=== PATIENT | male | born 1945 | race Caucasian/White ===

== ENCOUNTER 2016-09-10 10:58 | Emergency (ER) | payer SELFPAY ==
[2016-09-10] MEDS ORDERED: Zofran 4 MG/2 ML VIAL IV ONE (11:15)
[2016-09-10] MEDS ORDERED: Sodium Chloride 0.9% 1000 ML 1,000 ML IV SCH (11:15)
[2016-09-10] MEDS ORDERED: PROTONIX 40 MG IV IV ONE ×2 (11:15→11:28)
--- NOTE | 2016-09-10 11:24 | ERPHSYRPT ---
- History of Present Illness Time Seen by Provider: 09/10/16 11:10 Historian: patient Exam Limitations: clinical condition Patient Subjective Stated Complaint: PT REPORTS ABD PAIN GOING INTO BACK-STATES THAT HIS CHEMO MEDS WHERE CHANGED LAST SUNDAY-DENIES N/V/D-DENIES DIFFICULTY WITH BOWELS Triage Nursing Assessment: PT PINK WARM ET DRY-A & O X 3-BOWEL SOUNDS HYPERACTIVE-ABD SOFT ET NONTENDER TO PALP Physician History: PATIENT WITH A HISTORY OF MULTIPLE MYELOMA FOR 5 YEARS, TREATED WITH CHEMOTHERAPY COMPLAINS OF ABDOMINAL PAIN WHICH RADIATES TO HIS BACK SINCE YESTERDAY. DENIES NAUSEA, EMESIS, DIARRHEA, FEVER, CHILLS, DYSPNEA, COUGH OR URINARY SYMPTOMS. HAS A PAIN SCALE 6/10. HE ALSO DENIES NUMBNESS, TINGLING, WEAKNESS IN EXTREMITIES. Timing/Duration: yesterday Activities at Onset: none Quality: throbbing Abdominal Pain Onset Location: periumbilical Pain Radiation: back Severity of Pain-Max: moderate Severity of Pain-Current: moderate Modifying Factors: Improves With: nothing Associated Symptoms: back Previous symptoms: no prior history Allergies/Adverse Reactions: acetaminophen [From Tylenol] Allergy (Intermediate, Verified 09/10/16 11:04) Home Medications: Acyclovir 200 mg Cap [Zovirax 200 mg ] 200 mg PO UD 09/10/16 [History] Dexamethasone 4 mg PO UD 09/10/16 [History] Glipizide [Glipizide ER] 0 mg PO UD 09/10/16 [History] Levothyroxine Sodium 0 mcg PO UD 09/10/16 [History] Metformin HCl [Metformin HCl ER] 0 mg PO UD 09/10/16 [History] Hx Tetanus, Diphtheria Vaccination/Date Given: No Hx Influenza Vaccination/Date Given: No Hx Pneumococcal Vaccination/Date Given: No Immunizations Up to Date: Yes - Review of Systems Constitutional: No Fever, No Chills Eyes: No Symptoms Ears, Nose, & Throat: No Symptoms Respiratory: No Cough, No Dyspnea Cardiac: No Symptoms, No Chest Pain, No Edema, No Syncope Abdominal/Gastrointestinal: Abdominal Pain, No Nausea, No Vomiting, No Diarrhea Genitourinary Symptoms: No Symptoms, No Dysuria Musculoskeletal: No Symptoms, No Back Pain, No Neck Pain Skin: No Symptoms, No Rash Neurological: No Symptoms, No Dizziness, No Focal Weakness, No Sensory Changes Psychological: No Symptoms Endocrine: No Symptoms All Other Systems: Reviewed and Negative - Past Medical History Pertinent Past Medical History: Yes Other Medical History: AGENT ORANGE - Past Surgical History Past Surgical History: No - Social History Smoking Status: Never smoker Exposure to second hand smoke: No Drug Use: none Patient Lives Alone: No - Nursing Vital Signs Nursing Vital Signs: Initial Vital Signs Temperature 97.9 F Temperature Source Oral Pulse Rate 74 Respiratory Rate 20 Blood Pressure [] 123/76 Pain Intensity 0 - Physical Exam General Appearance: no apparent distress, alert Eye Exam: PERRL/EOMI, eyes nml inspection Ears, Nose, Throat Exam: normal ENT inspection, pharynx normal, moist mucous membranes Neck Exam: normal inspection, non-tender, supple, full range of motion Respiratory Exam: normal breath sounds, lungs clear, No respiratory distress Cardiovascular Exam: regular rate/rhythm, normal heart sounds Gastrointestinal/Abdomen Exam: soft, normal bowel sounds, other (NONTENDER UPON DEEP PALPATION, NO GUARDING OR REBOUND TENDERNESS), No tenderness, No mass Back Exam: normal inspection, normal range of motion, No CVA tenderness, No vertebral tenderness Extremity Exam: normal inspection, normal range of motion, pelvis stable Neurologic Exam: alert, oriented x 3, cooperative, normal mood/affect, nml cerebellar function, sensation nml, No motor deficits Skin Exam: normal color, warm, dry SpO2: 97 Oxygen Delivery: Room Air - Course EKG Interpreted by Me: RATE, Sinus Rhythm, NORMAL AXIS - CT Exams Abdomen/Pelvis CT Interpretation: Discussed w/radiologist (THERE IS A 10CM MASS IN THE RIGHT LOBE OF LIVER,FAVORING PRIMARY CARCINOMA.DISTENDED GALL BLADDER, NUMEROUS TINY CALCIFIED GALLSTONES) Ordered Tests: Active Orders 24 hr Category Date Time Status Clean Catch Urine Specimen STAT Care 09/10/16 11:15 Active EKG-ER Only STAT Care 09/10/16 11:24 Active IV Insertion STAT Care 09/10/16 11:15 Active ABDOMEN AND PELVIS W CONTRAST [CT] Stat Exams 09/10/16 11:16 Taken AMYLASE Stat Lab 09/10/16 11:27 Completed BLOOD CULTURE Stat Lab 09/10/16 11:41 Received CBC W DIFF Stat Lab 09/10/16 11:27 Completed CMP Stat Lab 09/10/16 11:27 Completed LIPASE Stat Lab 09/10/16 11:27 Completed MAGNESIUM Stat Lab 09/10/16 11:27 Completed TROPONIN Q3H Lab 09/10/16 11:30 Completed TROPONIN Q3H Lab 09/10/16 14:30 Ordered TROPONIN Q3H Lab 09/10/16 23:30 Ordered UA Stat Lab 09/10/16 11:16 Ordered Medication Summary Generic Name Dose Route Start Last Admin Trade Name Freq PRN Reason Stop Dose Admin Sodium Chloride 1,000 mls @ 150 mls/hr 09/10/16 11:15 09/10/16 11:34 Sodium Chloride 0.9% 1000 Ml IV 10/10/16 11:14 150 mls/hr .[id number] SURINDER Administration Discontinued Medications Generic Name Dose Route Start Last Admin Trade Name Freq PRN Reason Stop Dose Admin Hydromorphone HCl 1 mg 09/10/16 11:49 09/10/16 11:55 Hydromorphone 1 Mg/Ml Ampule IV 09/10/16 11:50 1 mg STAT ONE Administration Hydromorphone HCl Confirm 09/10/16 11:54 Hydromorphone 1 Mg/Ml Ampule Administered 09/10/16 11:55 Dose 1 mg .ROUTE .STK-MED ONE Sodium Chloride Confirm 09/10/16 11:28 Sodium Chloride 0.9% 1000 Ml Administered 09/10/16 11:29 Dose 1,000 mls @ ud .ROUTE .STK-MED ONE Ondansetron HCl 4 mg 09/10/16 11:15 09/10/16 11:34 Zofran 4 Mg/2 Ml Vial IV 09/10/16 11:16 4 mg STAT ONE Administration Ondansetron HCl Confirm 09/10/16 11:28 Zofran 4 Mg/2 Ml Vial Administered 09/10/16 11:29 Dose 4 mg .ROUTE .STK-MED ONE Pantoprazole Sodium 40 mg 09/10/16 11:15 09/10/16 11:34 Protonix 40 Mg Iv IV 09/10/16 11:16 40 mg STAT ONE Administration Pantoprazole Sodium Confirm 09/10/16 11:28 Protonix 40 Mg Iv Administered 09/10/16 11:29 Dose 40 mg IV .STK-MED ONE Lab/Rad Data: Laboratory Result Diagrams 09/10/16 11:27 09/10/16 11:27 Laboratory Results 09/10/16 09/10/16 09/10/16 Range/Units 11:30 11:27 11:27 WBC (4.0-10.5) K/mm3 RBC (4.1-5.6) M/mm3 Hgb (12.5-18.0) gm/dl Hct (42-50) % MCV (78-100) fl MCH (26-32) pg MCHC (32-36) g/dl RDW (11.5-14.0) % Plt Count (150-450) K/mm3 MPV (6-9.5) fl Gran % (36.0-66.0) % Lymphocytes % (24.0-44.0) % Monocytes % (0.0-12.0) % Eosinophils % (0.00-5.0) % Basophils % (0.0-0.4) % Basophils # (0-0.4) Sodium 139 (136-145) mEq/L Potassium 4.1 (3.5-5.1) mEq/L Chloride 103 (98-107) mEq/L Carbon Dioxide 26.4 (21-32) mEq/L Anion Gap 13.7 (5-15) MEQ/L BUN 34 H (9-20) mg/dL Creatinine 1.18 (0.55-1.30) mg/dl Estimated GFR > 60 ML/MIN Glucose 206 H (70-110) MG/DL Calcium 9.1 (8.5-10.1) mg/dL Magnesium 1.7 L (1.8-2.4) mg/dL Total Bilirubin 1.1 H (0.2-1.0) mg/dL AST 24 (15-37) U/L ALT 40 (12-78) U/L Alkaline Phosphatase 60 (46-116) U/L Troponin I < 0.017 (0.000-0.056) ng/ml Serum Total Protein 7.1 (6.4-8.2) gm/dL Albumin 3.7 (3.4-5.0) g/dL Amylase 133 H (25-115) U/L Lipase 1358 H (73-393) U/L 09/10/16 Range/Units 11:27 WBC 10.3 (4.0-10.5) K/mm3 RBC 4.59 (4.1-5.6) M/mm3 Hgb 14.3 (12.5-18.0) gm/dl Hct 41.8 L (42-50) % MCV 91.1 (78-100) fl MCH 31.2 (26-32) pg MCHC 34.2 (32-36) g/dl RDW 12.4 (11.5-14.0) % Plt Count 181 (150-450) K/mm3 MPV 11.2 H (6-9.5) fl Gran % 76.6 H (36.0-66.0) % Lymphocytes % 11.9 L (24.0-44.0) % Monocytes % 11.0 (0.0-12.0) % Eosinophils % 0.5 (0.00-5.0) % Basophils % 0.0 (0.0-0.4) % Basophils # 0 (0-0.4) Sodium (136-145) mEq/L Potassium (3.5-5.1) mEq/L Chloride (98-107) mEq/L Carbon Dioxide (21-32) mEq/L Anion Gap (5-15) MEQ/L BUN (9-20) mg/dL Creatinine (0.55-1.30) mg/dl Estimated GFR ML/MIN Glucose (70-110) MG/DL Calcium (8.5-10.1) mg/dL Magnesium (1.8-2.4) mg/dL Total Bilirubin (0.2-1.0) mg/dL AST (15-37) U/L ALT (12-78) U/L Alkaline Phosphatase (46-116) U/L Troponin I (0.000-0.056) ng/ml Serum Total Protein (6.4-8.2) gm/dL Albumin (3.4-5.0) g/dL Amylase (25-115) U/L Lipase (73-393) U/L - Progress Progress Note: 09/10/16 13:43 PATIENT GIVEN IV FLUIDS NORMAL SALINE 150ML/HR, ZOFRAN 4MG, DILAUDID 1MG IV Discussed with : Other Will see patient in: other (DISCUSSED WITH [facility] [place], DR UNDERWOOD AT 1340 ACCEPTS TRANSFER TO THEIR HOSP[facility] VIA [facility]) - Departure Time of Disposition: 14:35 Departure Disposition: Transfer Clinical Impression: ACUTE PANCREATITIS, LIVER MASS, CHOLELITHIASIS Condition: Stable Critical Care Time: No Referrals: DOCTOR,NO FAMILY [Primary Care Provider] -
[2016-09-10] MEDS ORDERED: Sodium Chloride 0.9% 1000 ML 1,000 ML ONE (11:28)
[2016-09-10] MEDS ORDERED: Zofran 4 MG/2 ML VIAL ONE (11:28)
[2016-09-10 11:46] LABS: Eosinophil % 0.5 % (0.00-5.0); Granulocytes % 76.6 % (36.0-66.0); Lymphocytes % 11.9 % (24.0-44.0); Mean Cell Volume 91.1 fl (78-100); Mean Corpuscular Hemoglobin 31.2 pg (26-32); Mean Platelet Volume 11.2 fl (6-9.5); Platelet Count 181 K/mm3 (150-450); Red Blood Count 4.59 M/mm3 (4.1-5.6); Red Cell Distribution Width 12.4 % (11.5-14.0); White Blood Count 10.3 K/mm3 (4.0-10.5)
[2016-09-10] MEDS ORDERED: Hydromorphone 1 mg/ml Ampule IV ONE (11:49)
[2016-09-10] MEDS ORDERED: Hydromorphone 1 mg/ml Ampule ONE (11:54)
[2016-09-10 11:56] LABS: ALBUMIN 3.7 g/dL (3.4-5.0); ALKALINE PHOSPHATASE 60 U/L (46-116); ANION GAP 13.7 MEQ/L (5-15); BILIRUBIN,TOTAL 1.1 mg/dL (0.2-1.0); BLOOD UREA NITROGEN 34 mg/dL (9-20); CHLORIDE 103 mEq/L (98-107); Carbon Dioxide 26.4 mEq/L (21-32); Glucose 206 MG/DL (70-110); LIPASE 1358 U/L (73-393); Potassium 4.1 mEq/L (3.5-5.1); SGOT/AST 24 U/L (15-37); SGPT/ALT 40 U/L (12-78); SODIUM 139 mEq/L (136-145); Total Protein 7.1 gm/dL (6.4-8.2)
[2016-09-10 13:00] VITALS: PULSE 74
[2016-09-10 13:46] VITALS: O2SAT 97
[2016-09-10 13:58] VITALS: BP 123/76
--- NOTE | 2016-09-10 16:39 | XRAY ---
Indication: Abdominal pain and nausea. Chemotherapy. Multiple contiguous axial images obtained through the abdomen and pelvis using 80 cc Isovue 370 contrast only. Comparison: None Lung bases demonstrates minimal left base fibrosis/scarring. No infiltrate, consolidation, or effusion. Heart is not enlarged. In the right lobe of liver, there is a hypodense liver measuring at least 10 cm in greatest axial dimension with scattered calcifications favoring primary carcinoma. Smaller 3 cm noncalcified liver mass seen in the lateral segment of the left lobe of the liver. Metastasis not completely excluded. Gallbladder is distended with several tiny intraluminal cholesterol stones and calcified stones. No biliary distention. Noncontrasted stomach and bowel loops appear nonobstructed. Moderate diffuse scattered colonic fecal debris throughout. Normal appendix. No free fluid/air. Remaining pancreas, spleen, adrenal glands, kidneys, ureters, and bladder appear unremarkable. Mild aortoiliac calcifications. No AAA or pathologic retroperitoneal lymphadenopathy. Osseous structures intact with mild degenerative changes throughout the spine. Small fatty right inguinal hernia. Tiny fatty umbilical hernia. Impression: 1. Hepatic masses as detailed favoring primary carcinoma such as hepatocellular carcinoma given the calcifications. Metastasis not completely excluded. 2. Distended gallbladder with several cholesterol stones and calcified stones. No abnormal biliary distention. 3. Fecal stasis without obstruction. 4. Fatty umbilical and right inguinal hernias. CTDI 23.34
== END 2016-09-10 14:44 | disposition short-term general hospital (02) ==
LOC: ED 10:58
DX: K85.90 Acute pancreatitis without necrosis or infection, unspecified (principal); R16.0 Hepatomegaly, not elsewhere classified; K80.20 Calculus of gallbladder without cholecystitis without obstruction; C90.00 Multiple myeloma not having achieved remission; Z79.899 Other long term (current) drug therapy; R10.9 Unspecified abdominal pain
CPT/HCPCS: 36000; 36415; 74177; 80053; 82150; 83690; 83735; 84484; 85025; 87040; 93005; 96360; 96361; 96374; 96375; 99285; J1170; J2405

== ENCOUNTER 2020-10-08 19:45 | Emergency (ER) | payer MEDICARE, OTHER ==
[2020-10-08 20:18] LABS: Absolute Neutrophil Ct (ANC) 3.39 (1.4-6.9); Basophil (Absolute #) 0.05 (0-0.4); Eosinophil % 2.5 % (0.00-5.0); Eosinophil (Absolute #) 0.13 (0-0.5); Hematocrit 32.6 % (42-50); Hemoglobin 10.7 gm/dl (12.5-18.0); Lymphocyte (Absolute #) 0.78 (1.0-4.6); Lymphocytes % 15.3 % (24.0-44.0); Mean Cell Volume 99.4 fl (78-100); Mean Corpuscular Hemoglobin 32.6 pg (26-32); Mean Corpuscular Hgb Concent. 32.8 g/dl (32-36); Mean Platelet Volume 10.7 fl (7.5-11.0); Monocyte (Absolute #) 0.75 (0.0-1.3); Monocytes % 14.7 % (0.0-12.0); Neutrophil % 66.5 % (36.0-66.0); Platelet Count 118 K/mm3 (150-450); Red Blood Count 3.28 M/mm3 (4.1-5.6); Red Cell Distribution Width 14.4 % (11.5-14.0); White Blood Count 5.1 K/mm3 (4.0-10.5)
[2020-10-08 20:25] LABS: INR 1.06 (0.8-3.0)
[2020-10-08 20:30] LABS: ALBUMIN 3.8 g/dL (3.5-5.0); ALKALINE PHOSPHATASE 66 U/L (38-126); BLOOD UREA NITROGEN 22 mg/dL (9-20); CHLORIDE 104 mmol/L (98-107); Calcium 9.3 mg/dL (8.4-10.2); Carbon Dioxide 26 mmol/L (22-30); Creatinine 1 1.23 mg/dL (0.66-1.25); EST GLOMERULAR FILTRATION RATE > 60.0 ML/MIN; Glucose 265 mg/dL (74-106); Potassium 4.4 mmol/L (3.5-5.1); SGOT/AST 18 U/L (17-59); SGPT/ALT 17 U/L (0-50); SODIUM 137 mmol/L (137-145); Total Protein 6.4 g/dL (6.3-8.2)
--- NOTE | 2020-10-08 20:56 | ERPHSYRPT ---
- History of Present Illness Time Seen by Provider: 10/08/20 20:00 Source: patient Patient Subjective Stated Complaint: "My leg is swollen." Triage Nursing Assessment: Patient reported right lower extremity swelling and feeling hot. Denied pain. Denied injury. Onset three days ago and worsening until today. Reported decreased ROM without pain. Deneid chest pain, shortness of breath, cold chills. Symmetrical chest expansion. Heart tones S1/S2. Lungs vesicular. Peripheral pulses +2 bilateral. Pedal pulses or posterior tibial pulses intact bilateral. Right lower extremity with significant swelling, heat, and mild errythema. negative Toby's sign. Physician History: Patient is a 75-year-old male who presents with a complaint of swelling of the right lower extremity for 3 days. There is been edema some heat he denies any significant pain. He has no history of DVT and is not on any anticoagulants. Timing/Duration: day(s) (3) Activities at Onset: none Quality: fullness Severity of Pain-Max: mild Severity of Pain-Current: mild Modifying Factors: Improves With: movement Nitro Today/Relief: no nitro taken today Aspirin Treatment Today: no aspirin today Associated Symptoms: No shortness of breath Allergies/Adverse Reactions: acetaminophen [From Tylenol] Allergy (Intermediate, Verified 10/08/20 19:55) Home Medications: Acyclovir 200 mg Cap [Zovirax 200 mg ] 200 mg PO UD 09/10/16 [History] Glipizide [Glipizide ER] 0 mg PO UD 09/10/16 [History] Levothyroxine Sodium 0 mcg PO UD 09/10/16 [History] Metformin HCl [Metformin HCl ER] 0 mg PO UD 09/10/16 [History] dexAMETHasone [Dexamethasone] 4 mg PO UD 09/10/16 [History] Aspirin 1 tab PO DAILY 10/08/20 [History] Hx Tetanus, Diphtheria Vaccination/Date Given: Yes Hx Influenza Vaccination/Date Given: Yes Hx Pneumococcal Vaccination/Date Given: No Travel Risk - International Travel Have you traveled outside of the country in past 3 weeks: No - Coronavirus Screening Are you exhibiting any of the following symptoms?: No Close contact with a COVID-19 positive Pt in past 14-21 Days: No - Vaccine Status Have you recieved a Covid-19 vaccination: No - Review of Systems Constitutional: No Fever, No Chills Eyes: No Symptoms Ears, Nose, & Throat: No Symptoms Respiratory: No Cough, No Dyspnea Cardiac: Edema (Right lower leg), No Chest Pain, No Syncope Abdominal/Gastrointestinal: No Abdominal Pain, No Nausea, No Vomiting, No Diarrhea Genitourinary Symptoms: No Dysuria Musculoskeletal: Joint Redness, No Back Pain, No Neck Pain Skin: No Rash Neurological: No Dizziness, No Focal Weakness, No Sensory Changes Psychological: No Symptoms Endocrine: No Symptoms Hematologic/Lymphatic: No Symptoms Immunological/Allergic: No Symptoms All Other Systems: Reviewed and Negative - Past Medical History Pertinent Past Medical History: Yes Endocrine Medical History: Diabetes Type I, Hypothyroidism Other Medical History: AGENT ORANGE - Past Surgical History Past Surgical History: No - Social History Smoking Status: Never smoker Exposure to second hand smoke: No Drug Use: none Patient Lives Alone: No - Nursing Vital Signs Nursing Vital Signs: Initial Vital Signs Temperature 96.6 F 10/08/20 19:45 Pulse Rate 99 H 10/08/20 19:45 Respiratory Rate 16 10/08/20 19:45 Blood Pressure 164/83 10/08/20 19:45 O2 Sat by Pulse Oximetry 97 10/08/20 19:45 Pain Scale Pain Intensity 0 - Physical Exam General Appearance: no apparent distress, alert Eye Exam: PERRL/EOMI, eyes nml inspection Ears, Nose, Throat Exam: normal ENT inspection, moist mucous membranes Neck Exam: normal inspection, non-tender, supple Respiratory Exam: normal breath sounds, lungs clear, No respiratory distress Cardiovascular Exam: regular rate/rhythm, normal heart sounds, No edema Gastrointestinal/Abdomen Exam: soft, No tenderness, No mass Back Exam: normal inspection, No CVA tenderness, No vertebral tenderness Extremity Exam: normal range of motion, calf tenderness, inflammation, swelling, tenderness Neurologic Exam: alert, oriented x 3, cooperative, normal mood/affect, nml cerebellar function, sensation nml, No motor deficits Skin Exam: normal color, warm, dry Lymphatic Exam: No adenopathy SpO2: 96 - Radiology Ultrasound Exam Venous Lower Extremity Ultrasound: Other (Venous Doppler of the veins in the right lower extremity show loss of compressibility at the mid thigh area. This is consistent with DVT) Ordered Tests: Active Orders 24 hr Category Date Time Status IV Insertion STAT Care 10/08/20 20:05 Active NPO (ED) STAT Care 10/08/20 19:59 Active VENOUS UNILAT/LIMITED EXTREMIT [US] Stat Exams 10/08/20 21:20 Taken CBC W DIFF Stat Lab 10/08/20 20:00 Completed CMP Stat Lab 10/08/20 20:00 Completed D-DIMER QUANTITATIVE Stat Lab 10/08/20 20:00 Completed PROTIME WITH INR Stat Lab 10/08/20 20:00 Completed PTT Stat Lab 10/08/20 20:00 Completed Lab/Rad Data: Laboratory Result Diagrams 10/08/20 20:00 10/08/20 20:00 Laboratory Results 10/08/20 10/08/20 10/08/20 Range/Units 20:00 20:00 20:00 WBC 5.1 (4.0-10.5) K/mm3 RBC 3.28 L (4.1-5.6) M/mm3 Hgb 10.7 L (12.5-18.0) gm/dl Hct 32.6 L (42-50) % MCV 99.4 (78-100) fl MCH 32.6 H (26-32) pg MCHC 32.8 (32-36) g/dl RDW 14.4 H (11.5-14.0) % Plt Count 118 L (150-450) K/mm3 MPV 10.7 (7.5-11.0) fl Gran % 66.5 H (36.0-66.0) % Eos # (Auto) 0.13 (0-0.5) Absolute Lymphs (auto) 0.78 L (1.0-4.6) Absolute Monos (auto) 0.75 (0.0-1.3) Lymphocytes % 15.3 L (24.0-44.0) % Monocytes % 14.7 H (0.0-12.0) % Eosinophils % 2.5 (0.00-5.0) % Basophils % 1.0 (0.0-0.4) % Absolute Granulocytes 3.39 (1.4-6.9) Basophils # 0.05 (0-0.4) PT 12.0 (8.83-12.87) SECONDS INR 1.06 (0.8-3.0) APTT 26.0 (24.1-36.1) SECONDS D-Dimer 77841 H* (215-500) ng/mL Sodium 137 (137-145) mmol/L Potassium 4.4 (3.5-5.1) mmol/L Chloride 104 (98-107) mmol/L Carbon Dioxide 26 (22-30) mmol/L Anion Gap 12.0 (5-15) MEQ/L BUN 22 H (9-20) mg/dL Creatinine 1.23 (0.66-1.25) mg/dL Estimated GFR > 60.0 ML/MIN Glucose 265 H (74-106) mg/dL Calcium 9.3 (8.4-10.2) mg/dL Total Bilirubin 2.20 H (0.2-1.3) mg/dL AST 18 (17-59) U/L ALT 17 (0-50) U/L Alkaline Phosphatase 66 (38-126) U/L Serum Total Protein 6.4 (6.3-8.2) g/dL Albumin 3.8 (3.5-5.0) g/dL - Progress Progress: unchanged Air Movement: good Blood Culture(s) Obtained: No Antibiotics given: Yes Discussed with DrGraciela: Cara Will see patient in: hospital (observation) - Departure Departure Disposition: Observation Clinical Impression: DVT (deep venous thrombosis) Condition: Stable Critical Care Time: No Referrals: DOCTOR,NO FAMILY [Primary Care Provider] -
[2020-10-08] MEDS ORDERED: Sodium Chloride 0.9% 1000 ML 1,000 ML ONE (21:43)
[2020-10-08] MEDS ORDERED: ENOXAPARIN SODIUM SQ ONE (21:43)
[2020-10-08] MEDS ORDERED: ROCEPHIN 1 Gm-D5w 50 ml Bag** 1 G/50 ML IVPB IV ONE (21:43)
[2020-10-08] MEDS: ENOXAPARIN SODIUM SQ SCH (21:44)
[2020-10-08] MEDS: Sodium Chloride 0.9% 1000 ML 1,000 ML IV SCH (21:45)
[2020-10-08] MEDS: ROCEPHIN 1 Gm-D5w 50 ml Bag** 1 G/50 ML IVPB IV STA (21:47)
--- NOTE | 2020-10-08 21:58 | XRAY ---
Indication: Right leg pain and swelling. Two-dimensional sonogram and color Doppler imaging of the major venous vessels of the right leg was performed. Comparison: None There is near occluding thrombi involving the mid to distal femoral, popliteal, and posterior tibial veins. No thrombus in the common femoral, deep femoral, proximal femoral, or greater saphenous veins. Impression: Near occluding DVT distal femoral, popliteal, and posterior tibial veins. Comment: Preliminary report was given.
[2020-10-08] MEDS ORDERED: ELIQUIS 2.5 MG TABLET PO SCH (22:00)
[2020-10-09 01:21] VITALS: BP 135/88; PULSE 88; O2SAT 99
--- NOTE | 2020-10-09 07:47 | XRAY ---
Indication: DVT. Elevated d-dimer. Multiple contiguous axial images obtained through the chest using 80 cc Isovue 370 contrast and PE protocol. Comparison: None There is adequate opacification of the pulmonary arteries to include the lobar and segmental branches. Nonoccluding pulmonary emboli seen in the distal left and right main pulmonary arteries. Pulmonary emboli further extends into the left lung lobar and segmental branches as well as lesser degree right upper lobe. Heart is not enlarged. Aorta is normal in course and caliber. Small left hilar calcified node. No pathologic mediastinal/hilar lymphadenopathy. Lungs are inflated with left mid to lower lung fibrosis/scarring. No suspicious pulmonary mass, infiltrate, or effusion. Bony thorax intact with mild osteopenia and mild degenerative changes throughout the spine. Limited upper abdomen demonstrates fatty liver, 10.1 x 9.0 cm suspicious right lobe partially calcified hepatic mass, and numerous tiny gallstones. Impression: 1. Diffuse nonobstructing bilateral pulmonary emboli as detailed. 2. Suspicious right lobe hepatic mass worrisome for malignancy. 3. Incidental fatty liver and cholelithiasis Comment: Preliminary interpretation was made by [facility]. No critical discrepancy.
== END 2020-10-09 00:43 ==
LOC: ED 19:45
DX: I82.401 Acute embolism and thrombosis of unspecified deep veins of right lower extremity (principal)
CPT/HCPCS: 36000; 36415; 71260; 80053; 84145; 85025; 85379; 85610; 85730; 93005; 93041; 93971; 96365; 96372; 99285; J0696; J1650

== ENCOUNTER 2021-10-17 02:50 | Emergency (ER) | payer OTHER ==
--- NOTE | 2021-10-17 02:59 | ERPHSYRPT ---
- History of Present Illness Time Seen by Provider: 10/17/21 02:59 Source: patient Exam Limitations: no limitations Physician History: 76 y/o white male who fell and hit his head 4 days ago and is on eliquis wants a ct scan of head. he has a persistent headache and mild blurred vision since his fall. those sx have improved. he denies cp. he denies n/v/d. he did not lose consciousness at time of injury. pt is a diabetic, has htn, elevated cholesterol and hypothyroid. Occurred: days ago (4) Head Injury Location: occipital Method of Injury: fell Loss of Consciousness: no loss of consciousness Associated Symptoms: headaches, other (blurred vision but improved) Allergies/Adverse Reactions: acetaminophen [From Tylenol] Allergy (Intermediate, Verified 10/08/20 19:55) Home Medications: Metformin HCl [Metformin HCl ER] 1,000 mg PO BID 09/10/16 [History] Aspirin 1 tab PO DAILY 10/08/20 [History] Atorvastatin Calcium 0.5 tab PO DAILY 10/08/20 [History] Dexamethasone 4 mg [Decadron 4 MG] 1 tab PO DAILY 10/08/20 [History] Insulin Glargine [Lantus Insulin] 1 unit SQ DAILY 10/08/20 [History] Lenalidomide [Revlimid] 1 cap PO DAILY 10/08/20 [History] Levothyroxine Sodium 150 Mcg [Synthroid 150 Mcg] 1 tab PO DAILY 10/08/20 [History] Lisinopril/Hydrochlorothiazide [Lisinopril-Hctz 20-12.5 mg Tab] 1 tab PO DAILY 10/08/20 [History] glipiZIDE [Glipizide] 1 tab PO BID 10/08/20 [History] Apixaban [Eliquis 5 mg Tablet] 5 mg PO DAILY 10/17/21 [History] Hx Tetanus, Diphtheria Vaccination/Date Given: Yes Hx Influenza Vaccination/Date Given: Yes Hx Pneumococcal Vaccination/Date Given: No Travel Risk - International Travel Have you traveled outside of the country in past 3 weeks: No - Coronavirus Screening Are you exhibiting any of the following symptoms?: No Close contact with a COVID-19 positive Pt in past 14-21 Days: No - Vaccine Status Have you recieved a Covid-19 vaccination: No - Review of Systems Constitutional: No Symptoms Eyes: No Symptoms Ears, Nose, & Throat: No Symptoms Respiratory: No Symptoms Cardiac: No Symptoms Abdominal/Gastrointestinal: No Symptoms Genitourinary Symptoms: No Symptoms Musculoskeletal: No Symptoms Skin: No Symptoms Neurological: Headache Psychological: No Symptoms Endocrine: No Symptoms Hematologic/Lymphatic: No Symptoms Immunological/Allergic: No Symptoms All Other Systems: Reviewed and Negative - Past Medical History Pertinent Past Medical History: Yes Endocrine Medical History: Diabetes Type I, Hypothyroidism Other Medical History: AGENT ORANGE - Past Surgical History Past Surgical History: No - Social History Smoking Status: Never smoker Exposure to second hand smoke: No Drug Use: none Patient Lives Alone: No - Nursing Vital Signs Nursing Vital Signs: Initial Vital Signs Temperature 98.1 F 10/17/21 02:57 Pulse Rate 114 H 10/17/21 02:57 Respiratory Rate 18 10/17/21 02:57 Blood Pressure 138/76 10/17/21 02:57 O2 Sat by Pulse Oximetry 95 10/17/21 02:57 Pain Scale Pain Intensity 4 - Maia Coma Score Best Eye Response (Maia): (4) open spontaneously Best Verbal Response (Chandler): (5) oriented Best Motor Response (Chandler): (6) obeys commands Chandler Total: 15 - Physical Exam General Appearance: no apparent distress, alert, anxiety Head Injury: no evidence of injury Eye Exam: bilateral eye: normal inspection, PERRL, EOMI ENT Exam: airway nml, nml ext.inspection, No evidence of ENT injury, No dental injury Neck Exam: supple, trachea midline, full range of motion, normal alignment, normal inspection Cardiovascular/Respiratory Exam: chest non-tender, no respiratory distress Gastrointestinal/Abdominal Exam: non tender Rectal Exam: not done Back Exam: normal inspection, normal range of motion, No CVA tenderness, No vertebral tenderness Extremity Exam: non-tender, normal range of motion, normal inspection Mental Status Exam: alert, oriented x 3, cooperative staff attorney Exam: normal hearing, normal speech, PERRL, abnormal eye position Skin Exam: normal color, warm, dry Lymphatic Exam: No adenopathy SpO2 Interpretation: normal O2 Delivery: Room Air - Course Nursing assessment & vital signs reviewed: Yes Ordered Tests: Active Orders 24 hr Category Date Time Status HEAD WITHOUT CONTRAST [CT] Stat Exams 10/17/21 03:07 Taken - Departure Clinical Impression: Head injury, Post-concussion syndrome Condition: Stable Critical Care Time: No Referrals: HOSPITAL,'S [Primary Care Provider] - Follow up/PCP as directed Additional Instructions: continue your medication as prescribed. follow up with primary provider for persistent symptoms
[2021-10-17 03:10] VITALS: O2SAT 95
[2021-10-17 04:11] VITALS: BP 125/71; PULSE 100
--- NOTE | 2021-10-17 08:52 | XRAY ---
Indication: Status post fall. Multiple contiguous axial images obtained through the head without contrast. Comparison: None. Age-appropriate global atrophy and minimal periventricular degenerative micro-ischemia bilaterally. 5 mm remote lacunar infarct right centrum semiovale. No acute intracranial hemorrhage, abnormal extra-axial fluid collection, or mass effect. Fourth ventricle is midline without hydrocephalus. Bony calvarium intact. Visualized paranasal sinuses and mastoid air cells are clear. Impression: Nonacute senile brain. Incidental remote lacunar infarct right centrum semiovale. Comment: Preliminary interpretation made by [facility]. No critical discrepancy.
== END 2021-10-17 04:15 | disposition home or self-care (01) ==
LOC: ED 02:50
DX: G44.309 Post-traumatic headache, unspecified, not intractable (principal); F07.81 Postconcussional syndrome; S09.90XA Unspecified injury of head, initial encounter; W19.XXXA Unspecified fall, initial encounter; E11.9 Type 2 diabetes mellitus without complications; I10 Essential (primary) hypertension; E78.5 Hyperlipidemia, unspecified; Z79.4 Long term (current) use of insulin; Z79.01 Long term (current) use of anticoagulants; Z79.52 Long term (current) use of systemic steroids; Z79.899 Other long term (current) drug therapy
CPT/HCPCS: 70450; 99283

== ENCOUNTER 2023-04-06 23:03 | Emergency (ER) | payer OTHER ==
--- NOTE | 2023-04-06 23:16 | ERPHSYRPT ---
- History of Present Illness Time Seen by Provider: 04/06/23 23:15 Source: patient, family Exam Limitations: no limitations Physician History: This is a 77-year-old white male patient who presents with back pain after lifting plywood at approximately 3 PM earlier today. Approximate 1 hour later he had back spasms and a burning sensation in the right mid lateral back that radiates into his right lateral abdomen. There is no tingling in his feet. He has not lost bowel or bladder function. Patient denies chest pain. He denies shortness of breath. Patient has a history of diabetes, hypothyroidism, hypertension, hyperlipidemia. Patient is on Eliquis. Timing/Duration: today Back Pain Location: lumbar spine, paraspinous muscles Severity of Pain-Max: mild (To moderate) Severity of Pain-Current: mild (To moderate) Modifying Factors: Improves With: movement Associated Symptoms: lower back pain, muscle spasms, No urinary incontinence, No loss of bowel control, No constipation, No problems urinating, No numbness in legs/feet, No tingling in legs/feet Previous symptoms: no prior history Allergies/Adverse Reactions: acetaminophen [From Tylenol] Allergy (Intermediate, Verified 04/06/23 23:06) Home Medications: Metformin HCl [Metformin HCl ER] 1,000 mg PO BID 09/10/16 [History] Aspirin 1 tab PO DAILY 10/08/20 [History] Atorvastatin Calcium 0.5 tab PO DAILY 10/08/20 [History] Dexamethasone 4 mg [Decadron 4 MG] 1 tab PO DAILY 10/08/20 [History] Insulin Glargine [Lantus Insulin] 1 unit SQ DAILY 10/08/20 [History] Lenalidomide [Revlimid] 1 cap PO DAILY 10/08/20 [History] Levothyroxine Sodium 150 Mcg [Synthroid 150 Mcg] 1 tab PO DAILY 10/08/20 [History] Lisinopril/Hydrochlorothiazide [Lisinopril-Hctz 20-12.5 mg Tab] 1 tab PO DAILY 10/08/20 [History] glipiZIDE [Glipizide] 1 tab PO BID 10/08/20 [History] Apixaban [Eliquis 5 mg Tablet] 5 mg PO DAILY 10/17/21 [History] Hx Tetanus, Diphtheria Vaccination/Date Given: Yes Hx Influenza Vaccination/Date Given: Yes Hx Pneumococcal Vaccination/Date Given: No Travel Risk - International Travel Have you traveled outside of the country in past 3 weeks: No - Coronavirus Screening Are you exhibiting any of the following symptoms?: No Close contact with a COVID-19 positive Pt in past 14-21 Days: No - Vaccine Status Have you recieved a Covid-19 vaccination: No - Review of Systems Constitutional: No Symptoms Eyes: No Symptoms Ears, Nose, & Throat: No Symptoms Respiratory: No Symptoms Cardiac: No Symptoms Abdominal/Gastrointestinal: Abdominal Pain (Right lateral) Genitourinary Symptoms: No Symptoms Musculoskeletal: Back Pain Neurological: No Symptoms Psychological: No Symptoms Endocrine: No Symptoms Hematologic/Lymphatic: No Symptoms Immunological/Allergic: No Symptoms All Other Systems: Reviewed and Negative - Past Medical History Pertinent Past Medical History: Yes Neurological History: No Pertinent History ENT History: No Pertinent History Cardiac History: No Pertinent History Respiratory History: No Pertinent History Endocrine Medical History: Diabetes Type I, Hypothyroidism Musculoskeletal History: No Pertinent History GI Medical History: No Pertinent History History: No Pertinent History Psycho-Social History: No Pertinent History Male Reproductive Disorders: No Pertinent History Other Medical History: AGENT ORANGE - Past Surgical History Past Surgical History: No Neuro Surgical History: No Pertinent History Cardiac: No Pertinent History Respiratory: No Pertinent History Gastrointestinal: No Pertinent History Genitourinary: No Pertinent History Musculoskeletal: No Pertinent History Male Surgical History: No Pertinent History - Social History Smoking Status: Never smoker Exposure to second hand smoke: No Drug Use: none Patient Lives Alone: No - Nursing Vital Signs Nursing Vital Signs: Initial Vital Signs Temperature 96.8 F 04/06/23 23:07 Pulse Rate 86 04/06/23 23:07 Respiratory Rate 18 04/06/23 23:07 Blood Pressure 160/81 04/06/23 23:07 O2 Sat by Pulse Oximetry 95 04/06/23 23:07 Pain Scale Pain Intensity 10 - Physical Exam General Appearance: no apparent distress, alert, anxiety Eye Exam: PERRL/EOMI, eyes nml inspection Ears, Nose, Throat Exam: normal ENT inspection, moist mucous membranes Neck Exam: normal inspection, non-tender, supple, full range of motion Respiratory Exam: normal breath sounds, lungs clear, airway intact, No chest tenderness, No respiratory distress Cardiovascular Exam: regular rate/rhythm, normal heart sounds, normal peripheral pulses Gastrointestinal Exam: soft, normal bowel sounds, tenderness (Mild right lateral abdomen) Rectal Exam: not done Back Exam: normal inspection, normal range of motion, vertebral tenderness (Lumbar region. 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, normal mood/affect, nml cerebellar function, nml station & gait, sensation nml Skin Exam: normal color, warm, dry Lymphatic Exam: No adenopathy SpO2 Interpretation: normal O2 Delivery: Room Air - Course Nursing assessment & vital signs reviewed: Yes Ordered Tests: Active Orders 24 hr Category Date Time Status IV Insertion STAT Care 04/07/23 01:09 Active ABDOMEN AND PELVIS W/0 CONTRAS [CT] Stat Exams 04/06/23 23:18 Completed RECONSTRUCTION [CT] Stat Exams 04/06/23 23:23 Completed AMYLASE Stat Lab 04/07/23 01:25 Completed CBC W DIFF Stat Lab 04/07/23 01:25 Completed CMP Stat Lab 04/07/23 01:25 Completed LIPASE Stat Lab 04/07/23 01:25 Completed Medication Summary Generic Name Dose Route Start Last Admin Trade Name Freq PRN Reason Stop Dose Admin Sodium Chloride 1,000 mls @ 999 mls/hr 04/07/23 01:09 04/07/23 01:20 Sodium Chloride 0.9% 1000 Ml IV 04/07/23 02:09 999 mls/hr .Q1H1M STA Administration Levofloxacin/Dextrose 500 mg in 100 mls @ 100 mls/hr 04/07/23 01:35 04/07/23 01:44 Levofloxacin 500mg/100ml D5w IV 04/07/23 02:34 100 mls/hr STAT STA 100 mls/hr Administration Discontinued Medications Generic Name Dose Route Start Last Admin Trade Name Freq PRN Reason Stop Dose Admin Hydromorphone HCl 1 mg 04/07/23 01:09 04/07/23 01:22 Hydromorphone 1 Mg/1ml Inj IV 04/07/23 01:10 1 mg STAT ONE Administration Hydromorphone HCl Confirm 04/07/23 01:18 Hydromorphone 1 Mg/1ml Inj Administered 04/07/23 01:19 Dose 1 mg .ROUTE .STK-MED ONE Sodium Chloride Confirm 04/07/23 01:18 Sodium Chloride 0.9% 1000 Ml Administered 04/07/23 01:19 Dose 1,000 mls @ ud .ROUTE .STK-MED ONE Ondansetron HCl 4 mg 04/07/23 01:09 04/07/23 01:22 Ondansetron Hcl 4 Mg/2 Ml Vial IV 04/07/23 01:10 4 mg STAT ONE Administration Ondansetron HCl Confirm 04/07/23 01:18 Ondansetron Hcl 4 Mg/2 Ml Vial Administered 04/07/23 01:19 Dose 4 mg .ROUTE .STK-MED ONE Lab/Rad Data: Laboratory Result Diagrams 04/07/23 01:25 04/07/23 01:25 Laboratory Results 04/07/23 04/07/23 Range/Units 01:25 01:25 WBC 8.8 (4.0-10.5) x10^3/uL RBC 4.69 (4.1-5.6) x10^6/uL Hgb 14.3 (12.5-18.0) g/dL Hct 44.2 (42-50) % MCV 94.2 (78-100) fL MCH 30.5 (26-32) pg MCHC 32.4 (32-36) g/dL RDW 13.1 (11.5-14.0) % Plt Count 125 L (150-450) x10^3/uL MPV 10.7 (7.5-11.0) fL Gran % 74.9 H (36.0-66.0) % Immature Gran % (Auto) 0.5 H (0.00-0.4) % Nucleat RBC Rel Count 0.0 (0.00-0.1) % Eos # (Auto) 0 (0-0.5) x10^3/uL Immature Gran # (Auto) 0.04 H (0.00-0.03) x10^3u/L Absolute Lymphs (auto) 0.53 L (1.0-4.6) x10^3/uL Absolute Monos (auto) 1.62 H (0.0-1.3) x10^3/uL Absolute Nucleated RBC 0.00 (0.00-0.01) x10^3u/L Lymphocytes % 6.0 L (24.0-44.0) % Monocytes % 18.4 H (0.0-12.0) % Eosinophils % 0.0 (0.00-5.0) % Basophils % 0.2 (0.0-0.4) % Absolute Granulocytes 6.61 (1.4-6.9) x10^3/uL Basophils # 0.02 (0-0.4) x10^3/uL Sodium 138 (137-145) mmol/L Potassium 4.3 (3.5-5.1) mmol/L Chloride 102 (98-107) mmol/L Carbon Dioxide 27 (22-30) mmol/L Anion Gap 12.5 (5-15) MEQ/L BUN 21 H (9-20) mg/dL Creatinine 0.94 (0.66-1.25) mg/dL Estimated GFR > 60.0 ML/MIN Glucose 228 H (74-106) mg/dL Calcium 8.9 (8.4-10.2) mg/dL Total Bilirubin 2.60 H (0.2-1.3) mg/dL AST 30 (17-59) U/L ALT 37 (0-50) U/L Alkaline Phosphatase 82 (38-126) U/L Serum Total Protein 6.8 (6.3-8.2) g/dL Albumin 4.0 (3.5-5.0) g/dL Amylase 53 (30-110) U/L Lipase 55 (23-300) U/L - Progress Progress: pain not gone completely, re-examined Progress Note: 04/06/23 23:57 This patient's medical issue is 1 of low complexity. Level of complexity in the work-up performed is based on review of the patient's past medical history, review of the patient's medication list, review the patient's drug allergy list, history present illness and physical findings on examination. This patient's work-up includes CT scan of the abdomen pelvis with lumbar reconstruction. We want to evaluate both the lumbar spine as well as intra-abdominal and intrapelvic content including abdominal aorta. 04/07/23 00:[address] scan of the lumbar spine shows no acute fracture or traumatic subluxation. There is indeterminate compression fracture versus prominent Schmorl's node. This study was interpreted by the radiologist and I reviewed the impression. CT scan of the abdomen pelvis without contrast shows a thick edematous walled distended gallbladder with calculi and sludge. There is pericholecystic free fluid and fat stranding present. Findings are consistent with acute cholecystitis. A tiny focus is suggested in the cystic duct. 04/07/23 01:44 This patient's symptoms have improved with IV fluids and pain medication. His total bilirubin is elevated but his other liver function test and the pancreas enzymes are within normal limits. Patient is afebrile. He is not vomiting. We will remotely send a prescription for Cipro and Percocet to his pharmacy. 04/07/23 01:48 Counseled pt/family regarding: diagnosis, need for follow-up, rad results Medical Desision Making - Diagnostic Testing Diagnostic test were ordered, analyzed, and reviewed by me: Yes Radiological Interpretation: Reviewed by me, Teleradiologist Report - Risk of complications The pt has a mod risk of morbidity or mortality based on: Need for prescription drug management - Departure Departure Disposition: Home Clinical Impression: Acute cholecystitis Condition: Stable Critical Care Time: No Referrals: [facility]OSP[facility],'[facility] [Primary Care Provider] - Follow up/PCP as directed Additional Instructions: Clear liquid diet. Avoid fatty greasy spicy foods. Take your medication as prescribed. Follow-up with your primary care provider on 04/09/2023 to make arranges for follow-up appointment and further management including obtaining an ultrasound of the gallbladder as well as referral to a general surgeon as indicated Prescriptions: Hydrocodone/Chlorphen P-Stirex [Hydrocodone-Chlorph ER Susp (TUSSIONEX)] 5 ml PO [id number] PRN 6 Days #60 ml MDD 10 ML PRN Reason: Moderate To Severe Pain Ciprofloxacin [Cipro 500 MG] 500 mg PO BID #14 tablet
[2023-04-06 23:23] VITALS: TEMP 96.8
--- NOTE | 2023-04-07 00:49 | XRAY ---
CLINICAL HISTORY:Back and abdominal pain COMPARISON:None TECHNIQUE:Multiple axial sections of the abdomen and pelvis were acquired without intravenous contrast administration. Sagittal and coronal reformatted images were obtained. FINDINGS: Please note, that lack of contrast limits the evaluation of organs and vascular structures. Both lung bases are clear. Cardiac size is normal. Mildly enlarged liver. A fairly defined hypodense lesion with dense central calcification is seen involving segment 7 of the liver measuring approximately 8.7 x 7.0 x 8.5cm in AP, transverse and craniocaudal dimensions. No intrahepatic duct dilatation is noted. Gallbladder is significantly distended measuring 12.4 x 5.5 cm. Thickened edematous wall adjacent to pericholecystic fat strandings are seen. Multiple intraluminal calculi with radiodense sludge are seen. Trace of pericholecystic fluid. Findings suggest acute cholecystitis. There is suggestion of a tiny calcific foci in the cystic duct. The common bile duct appears normal. The unenhanced pancreas, spleen, and adrenal glands are within normal limits. Scattered splenic tiny calcified granulomas. Both kidneys are in size, location, and axis. The right kidney shows arterial calcification. No calculus or cyst is seen on either side. Bilateral mild perinephric fat stranding, possibly senescent change. The urinary bladder is normal. Prostate gland is within normal limits. No acute bowel obstruction changes. Moderate colonic stool volume. The appendix is not discretely identified. No gross ascites. No evidence of enlarged mediastinal or retroperitoneal lymphadenopathy. Fat-containing right inguinal hernia. There is an age-indeterminate compression fracture of L3 without retropulsion or retrolisthesis cyst. Decreased vertebral body height of T12. Multilevel lumbar spondylosis or degenerative changes. IMPRESSION: 1. Thick edematous-walled distended gallbladder with calculi and sludge. Associated pericholecystic free fluid and fat strandings are seen. Findings are consistent with acute cholecystitis. 2. A tiny focus is suggested in the cystic duct. 3. Hypodense hepatic lesion with central calcifications. Lack of contrast limits evaluation. Consider a triphasic CT scan for further analysis. The [facility] ER office was called at [phone] at 11:46 PM [employer], 04/06/2023 and the results were verbally communicated with Rj Yeh. Electronically Signed by: Daysi Lynn MD. (04/06/2023 23:47:45 [facility])
--- NOTE | 2023-04-07 00:51 | XRAY ---
CLINICAL HISTORY:back pain COMPARISON:None. TECHNIQUE:Multiple axial sections of the lumbar spine were acquired without intravenous contrast administration. Reformatted images were obtained. CTDI is 7.78 mGy. DLP is 456.93 mGy/cm. FINDINGS: Straightening of normal lumbar spine, likely due to associated muscle spasm/sprain. There is a suggestion of Indeterminant compression fracture versus prominent Schmorl's node at the superior endplate of L3. No retropulsion or retrolisthesis. Decreased vertebral body height T12 is seen. Suggestion of T12 vertebral body hemangioma. No acute fracture or traumatic subluxation. Multilevel moderate facet arthrosis. Reduced intervertebral disc space with prominent marginal multiple levels. [id number] analysis is as follows: L1-L2: Minimal posterior disc bulge without neural foraminal narrowing. At L2-L3: A 3 mm posterior disc bulge is seen with mild narrowing of bilateral neural foramina. At L3-L4: A 5 mm posterior disc bulge is seen with moderate narrowing of bilateral neural foramina, more so on the right. At L4-L5: A 5 mm posterior disc bulge with resultant moderate bilateral. At L5-S1 a small posterior disc bulges without significant neural foraminal narrowing. The prevertebral soft tissues are within normal limits. For abdominal findings, please refer to the CT abdomen and pelvis report dated the same day (04/06/2023). IMPRESSION: 1. No acute fracture or traumatic subluxation. 2. Indeterminant compression fracture versus prominent Schmorl's node at the superior endplate of L3 without retropulsion or retrolisthesis. 3. Decreased vertebral body height with suggestion of hemangioma at T12. 4. Multilevel moderate spondylodegenerative changes. Consider MRI for further assessment. Electronically Signed by: Daysi Lynn MD. (04/06/2023 23:50:13 [employer])
[2023-04-07] MEDS ORDERED: Zofran 4 MG/2 ML VIAL IV ONE (01:09)
[2023-04-07] MEDS ORDERED: Hydromorphone 1 mg/ml Injection IV ONE (01:09)
[2023-04-07] MEDS ORDERED: Sodium Chloride 0.9% 1000 ML 1,000 ML IV STA (01:09)
[2023-04-07] MEDS ORDERED: Hydromorphone 1 mg/ml Injection ONE (01:18)
[2023-04-07] MEDS ORDERED: Zofran 4 MG/2 ML VIAL ONE (01:18)
[2023-04-07] MEDS ORDERED: Sodium Chloride 0.9% 1000 ML 1,000 ML ONE (01:18)
[2023-04-07 01:30] LABS: Absolute Neutrophil Ct (ANC) 6.61 x10^3/uL (1.4-6.9); BASOPHIL % 0.2 % (0.0-0.4); Basophil (Absolute #) 0.02 x10^3/uL (0-0.4); Eosinophil (Absolute #) 0 x10^3/uL (0-0.5); Hematocrit 44.2 % (42-50); Hemoglobin 14.3 g/dL (12.5-18.0); IMMATURE GRAN # 0.04 x10^3u/L (0.00-0.03); IMMATURE GRAN % 0.5 % (0.00-0.4); Lymphocyte (Absolute #) 0.53 x10^3/uL (1.0-4.6); Mean Cell Volume 94.2 fL (78-100); Mean Corpuscular Hemoglobin 30.5 pg (26-32); Mean Corpuscular Hgb Concent. 32.4 g/dL (32-36); Mean Platelet Volume 10.7 fL (7.5-11.0); Monocyte (Absolute #) 1.62 x10^3/uL (0.0-1.3); Monocytes % 18.4 % (0.0-12.0); Neutrophil % 74.9 % (36.0-66.0); Platelet Count 125 x10^3/uL (150-450); Red Blood Count 4.69 x10^6/uL (4.1-5.6); Red Cell Distribution Width 13.1 % (11.5-14.0); White Blood Count 8.8 x10^3/uL (4.0-10.5)
[2023-04-07] MEDS ORDERED: Levofloxacin 500MG/100ML D5W 500 MG/100 ML BAG IV STA (01:35)
[2023-04-07 01:41] LABS: ALKALINE PHOSPHATASE 82 U/L (38-126); AMYLASE 53 U/L (30-110); ANION GAP 12.5 MEQ/L (5-15); BLOOD UREA NITROGEN 21 mg/dL (9-20); CHLORIDE 102 mmol/L (98-107); Calcium 8.9 mg/dL (8.4-10.2); Carbon Dioxide 27 mmol/L (22-30); Creatinine 1 0.94 mg/dL (0.66-1.25); EST GLOMERULAR FILTRATION RATE > 60.0 ML/MIN; Glucose 228 mg/dL (74-106); LIPASE 55 U/L (23-300); Potassium 4.3 mmol/L (3.5-5.1); SGOT/AST 30 U/L (17-59); SGPT/ALT 37 U/L (0-50); SODIUM 138 mmol/L (137-145); Total Protein 6.8 g/dL (6.3-8.2)
[2023-04-07] MEDS ORDERED: Levofloxacin 500MG/100ML D5W 500 MG/100 ML BAG IV ONE (01:43)
[2023-04-07 02:45] VITALS: RESP 18
[2023-04-07 03:53] VITALS: BP 130/74; PULSE 67; O2SAT 94
== END 2023-04-07 03:50 | disposition home or self-care (01) ==
LOC: ED 23:03
DX: K80.00 Calculus of gallbladder with acute cholecystitis without obstruction (principal); M54.50 Low back pain, unspecified; E10.9 Type 1 diabetes mellitus without complications; I10 Essential (primary) hypertension; E78.5 Hyperlipidemia, unspecified; Z79.01 Long term (current) use of anticoagulants; Z79.4 Long term (current) use of insulin; Z79.84 Long term (current) use of oral hypoglycemic drugs; Z79.891 Long term (current) use of opiate analgesic; Z79.899 Other long term (current) drug therapy; Z28.310 Unvaccinated for COVID-19
CPT/HCPCS: 36000; 36415; 74176; 76376; 80053; 82150; 83690; 85025; 96360; 96365; 96374; 96375; 99284; J1170; J1956; J2405